=== PATIENT | female | born 1935 | race Caucasian/White ===

== ENCOUNTER 2020-01-05 17:05 | Inpatient (IN) | payer MEDICARE ==
[2020-01-05] VITALS (7 sets, daily range): BP systolic 150–207; BP diastolic 63–73
--- NOTE | 2020-01-05 18:00 | NUR ---
INFORMED CONSENT FOR 2 UNITS OF PRBC'S OBTAINED AT THIS TIME BY PT DAUGHTER (BRIDGER).PT AND DAUGHTER VERBALIZES UNDERSTANDING OF BLOOD TRANSFUSION AND REACTIONS.
--- NOTE | 2020-01-05 18:15 | NUR ---
PT ARRIVED TO MED/SURG ROOM 281 IN STABLE CONDITION VIA WHEELCHAIR ACCOMPANIED BY WRITTER;PT AMBULATED TO STANDING SCALE AND BEDSIDE;WT AND VS OBTAINED AT THIS TIME BP 207/73 HR 63, PT NOTED TO BE ANXIOUS;PT A&O X3,ORIENTED TO ROOM AND CALL LIGHT SYSTEM;PT DENIES ANY CURRENT PAIN OR DISCOMFORTS,PAIN SCALE AND REPORTING EDUCATED;RESPIRATIONS EVEN AND UNLABORED ON RA,CLEAR LUNG SOUNDS;ABDOMEN SOFT ON PALPATION AND ACTIVE IN ALL 4 QUADRANTS,LAST BM 01/04/20;WEAK PEDAL PULSES;SKIN INTACT;#20G STARTED TO RAC ON FIRST ATTEMPT BY THIS WRITTER,PT TOLERATED WELL;TELE MONITORING TO BE PLACED ON PT;PT DENIES ANY ADDITIONAL NEEDS AT THIS TIME AND IS ENCOURAGED TO CALL FOR ASSISTANCE IF NEEDED;FALL PRECAUTIONS IN PLACE WITH BED IN THE LOWEST POSITION AND CALL LIGHT IN REACH;WILL CONTINUE TO MONITOR
--- NOTE | 2020-01-05 18:25 | NUR ---
AT BEDSIDE DISCUSSING POC INCLUDING PLANS TO TAKE PT TO OR FOR COLONOSCOPY TOMORROW 01/06/20, PT VERBALIZES UNDERSTANDING.
[2020-01-05] MEDS ORDERED: COZAAR100 MG PO (19:07)
[2020-01-05] MEDS ORDERED: CARVEDILOL12.5 MG PO (19:08)
[2020-01-05] MEDS ORDERED: LIPITOR40 M1 PO (19:08)
[2020-01-05] MEDS ORDERED: MEMANTINE HYDROC5 MG (19:09)
[2020-01-05] MEDS ORDERED: ALENDRONATE SOD70 MG PO (19:10)
[2020-01-05] MEDS ORDERED: LORATADINE10 M3 (19:11)
[2020-01-05] MEDS ORDERED: DONEPEZIL HCL10 M1 (19:11)
--- NOTE | 2020-01-05 19:20 | NUR ---
MAINFRAME ARCHITECT, MOISÉS NOTIFIED OF SCHEDULED COLONOCOPY SCHEDULED FOR MORNING.
--- NOTE | 2020-01-05 20:07 | NUR ---
PT. IS GIVEN NULYTLELY AND EDUCATED ON NEED TO DRINK PRIOR TO MIDNIGHT AND VERBALIZES UNDERSTANDING. ALSO NOTIFIED OF NPO STATUS POST MIDNIGHT.
--- NOTE | 2020-01-05 21:06 | NUR ---
PT. REMAINS HYPERTENSIVE AND SCHEDULED HOME MED(COREG) GIVEN AT THIS TIME; WILL REASSESS TO SEE IF PT. NEEDS PRN HYDRALAZINE; WILL CONTINUE TO MONITOR. SPOKE WITH DAUGHTER(WHO IS THE POA) AND OBTAINED CONSENT BY TELEPHONE FOR EGD AND COLONOSCOPY FOR TOMORROW. VERIFIED VERBAL CONSENT WITH SECOND NURSE WELL. UPDATED POA WITH PT'S STATUS WELL AND THAT THIS INTERVENTION TEACHER IS ABOUT TO START BLOOD TRANSFUSION WELL PER ORDER.
--- NOTE | 2020-01-05 21:27 | NUR ---
BLOOD TRANSFUSION STARTED AND VERIFIED BY 2 NURSES PER PROTOCOL. THIS WHITE SUGAR PAN TANK OPERATOR AT BEDSIDE FOR INITITAL 15 MINUTES TO MONITOR FOR S/S OF REACTIONS.
--- NOTE | 2020-01-05 22:27 | NUR ---
REASSESSED B/P POST HYDRALIZINE AND NOW DOWN TO 150/68; WILL CONTINUE TO MONITOR. PT. ENCOURAGED TO CONTINUE WITH NULYTELY. PRBC'S INFUSING WELL. NO REACTIONS NOTED.
[2020-01-06] VITALS (13 sets, daily range): BP systolic 146–169; BP diastolic 51–78
--- NOTE | 2020-01-06 00:30 | NUR ---
FIRST UNIT OF PRBC'S FINISHED. PT. ONLY CONSUMED HALF OF GOLYTELY, PER PT. SHE IS UNABLE TO DRINK ANYMORE AT THIS TIME. STOOL APPEARS RED AND LIQUID AT THIS TIME. VSS. WILL CONITNUE TO MONITOR.
--- NOTE | 2020-01-06 00:45 | NUR ---
SECOND UNIT OF PRBC'S STARTED AND VERIFIED BY 2 NURSES PER PROTOCOL. THIS NURSE AT BEDSIDE FOR INITIAL 15 MINUTES TO MONITOR FOR S/S OF REACTIONS.
--- NOTE | 2020-01-06 03:30 | NUR ---
SECOND UNIT OF PRBC'S FINISHED. PT. TOLERATED WELL. NO REACTIONS NOTED. VSS. DENIES NEEDS/PAIN. PT. WAS ONLY ABLE TO TAKE IN HALF OF GOLYTLEY, BM STILL A LIQUID CONSISTENCY AND IS RED WITH NO CHANGE.
--- NOTE | 2020-01-06 04:00 | NUR ---
METROLOGY SPECIALIST IS INSTRUCTED TO WAIT 2 HRS POST TRANSFUSION FOR AM LABS AND TO OBTAIN THESE AT 0530.
[2020-01-06 05:53] LABS: HEMATOCRIT 28.5 % (37.0-47.0); MEAN CELL VOLUME 82.4 fL CALC (80.0-100.0); MEAN CORPUSCULAR HGB 25.4 pG CALC (26.0-32.0); MEAN CORPUSCULAR HGB CONC 30.9 g/dL CAL (32.0-36.0); RED BLOOD COUNT 3.46 mill/uL (4.20-5.60); RED CELL DISTRI WIDTH 18.6 % (11.5-15.5)
[2020-01-06 06:01] LABS: INTERNATIONAL NORMALIZED RATIO 1.1 RATIO (0.7-1.3); PROTHROMBIN TIME 11.1 SECONDS (9.0-12.5)
[2020-01-06 06:03] LABS: ALBUMIN 3.1 g/dL (3.2-5.0); ALKALINE PHOSPHATASE 66 u/l (38-126); ANION GAP 10 (6-22 (CALC)); BILIRUBIN, TOTAL 0.8 mg/dL (0.0-1.4); BUN 18 mg/dL (8-23); BUN/CREATININE RATIO 20 (12-20 (CALC)); CARBON DIOXIDE 20 mmol/l (22-30); CHLORIDE 112 mmol/l (95-108); CREATININE 0.9 mg/dL (0.5-1.0); GFR 60 ML/MIN (>=60 (CALC)); GFR FOR AFR.AMER. > 60 ML/MIN (>=60 (CALC)); SGOT/AST 18 u/l (9-36); SODIUM 138 mmol/l (137-146); TOTAL PROTEIN 5.9 g/dL (6.3-8.2)
[2020-01-06 06:18] LABS: HEMOGLOBIN 8.8 g/dl (12.0-16.0)
--- NOTE | 2020-01-06 07:00 | NUR ---
REPORT RECEIVED FROM VIPUL HO;PT APPEARS TO BE SLEEPING IN SUPINE POSITION;NO S/S OF DISTRESS NOTED;RESPIRATIONS EVEN AND UNLABORED ON RA;TELE MONITORING IN PLACE;NPO DIET REINFORCED;ALL SAFETY PRECAUTIONS REMAIN IN PLACE WITH BED IN THE LOWEST POSITION AND CALL LIGHT IN RECH;WILL CONTINUE TO MONITOR
--- NOTE | 2020-01-06 08:40 | NUR ---
PT RESTING IN SEMI FOWLERS POSITION,A&O X3;VS OBTAINED AND ASSESSMENT COMPLETED;PT REPORTS HEADACHE PAIN AT THIS TIME,EDUCATED PT ON NPO DIET STATUS AND PT VERBALIZES UNDERSTANDING; WARM PACK OFFERED BUT PT DECLINED;RESPIRATIONS EVEN AND UNLABORED ON RA,CLEAR LUNG SOUNDS;ABDOMEN SOFT ON PALPATION AND ACTIVE IN ALL 4 QUADRANTS;WEAK PEDAL PULSES;SKIN INTACT;TELE MONITORING IN PLACE;#22G TO LFA AND #20G TO RAC PATENT,BOTH SITES FLUSHED AND PATENT;PT TO BE TAKEN TO OR FOR COLONOSCOPY AND EGD,PT VERBALIZES UNDERSTANDING AND DENIES ANY ADDITIONAL QUESTIONS OR NEEDS;PHONED PT DAUGHTER SO THEY COULD TALK PRIOR TO PT LEAVING FOR OR;PT DENIES ANY ADDITIONAL NEEDS AT THIS TIME AND IS ENCOURAGED TO CALL FOR ASSISTANCE IF NEEDED;FALL PRECAUTIONS IN PLACE WITH BED IN THE LOWEST POSITION AND CALL LIGHT IN REACH;WILL CONTINUE TO MONITOR
--- NOTE | 2020-01-06 08:45 | NUR ---
AT BEDSIDE DISCUSSING POC.
--- NOTE | 2020-01-06 09:21 | NUR ---
PT TRANSPORTED TO OR IN STABLE CONDITION VIA STRETCHER ACCOMPANIED BY VIPUL DUNN
--- NOTE | 2020-01-06 11:50 | NUR ---
PT ARRIVED BACK TO MED/SURG ROOM 280 IN STABLE CONDITION VIA STRETCHER ACCOMPANIED BY VIPUL DUNN;PT ASSISTED TO HOSPITAL BED WITH MINIMAL ASSSISTANCE;PT DENIES ANY CURRENT PAIN OR DISCOMFORTS,PAIN SCALE AND REPORTING EDUCATED;RESPIRATIONS EVEN AND UNLABORED ON RA;CURRENT VS BP 160/59 HR 66 O2 98 RR 18 T 97.8, VS TO BE OBTAINED PER [facility] POST OP PROTOCAL;IV FLUIDS INFUSING WITH EASE TO RAC, IV SITE TO LFA REMAINS PATENT;TELE MONITORING PLACED BACK ON PT;PT VERBALIZES UNDERSTANDING ON PLANS TO TRANSFER TO [facility], AWATING BED ASSIGNMENT;PT DENIES ANY ADDITIONAL NEEDS AT THIS TIME AND IS ENCOURAGED TO CALL FOR ASSISTANCE IF NEEDED;ALL SAFETY PRECAUTIONS REMAIN IN PLACE WITH BED IN THE LOWEST POSITION AND CALL LIGHT IN REACH;WILL CONTINUE TO MONITOR
--- NOTE | 2020-01-06 12:30 | NUR ---
UPDATED DAUGHTER (POA) BRIDGER ON PLAN OF CARE.ALL QUESTIONS ANSWERED AT THIS TIME.DAUGHTER TRANSFERRED INTO PATIENTS ROOM.
--- NOTE | 2020-01-06 13:23 | NUR ---
PT REPORTING ABDOMINAL PAIN AT THIS TIME,[place] NOTIFIED;AWAITING NEW ORDERS;WILL CONTINUE TO MONITOR
--- NOTE | 2020-01-06 13:47 | NUR ---
PT MEDICATED WITH PRN ULTRAM 50MG PO FOR ABDOMINAL PAIN RATING 10/10 ON THE PAIN SCALE;PT NOTIFIED OF [facility] [employer] MECHANIC TIME IF 1415 FOR TRANSPORT TO [facility] AND VERBALIZES UNDERSTANDING;PT DENIES ANY ADDITIONAL NEEDS AT THIS TIME;WILL CONTINUE TO MONITOR
--- NOTE | 2020-01-06 14:00 | NUR ---
PT TRANSPORTED TO [facility] AT THIS TIME VIA STRETCHER ACCOMPANIED BY [facility] IN STABLE CONDITION
--- NOTE | 2020-01-06 14:09 | NUR ---
REPORT CALLED TO VIPUL BERNARD AT [facility]
--- NOTE | 2020-01-06 14:13 | NUR ---
BRIDGER (DAUGHTER) NOTIFIED THAT PATIENT IS IN ROUTE TO [facility]
== END 2020-01-06 14:00 | DRG 375 ==
LOC: ED 17:05 → EDSTATUS 17:09 → MS2 01-06 14:00
PROVIDERS: Surgery; ADMIT Internal Medicine; ATTEND Internal Medicine
PROC: 30233N1 Transfusion of Nonautologous Red Blood Cells into Peripheral Vein, Percutaneous Approach (ICD-10-PCS; 2020-01-05)
PROC: 0DBH8ZX Excision of Cecum, Via Natural or Artificial Opening Endoscopic, Diagnostic (ICD-10-PCS; principal; 2020-01-06)
PROC: 0DBL8ZX Excision of Transverse Colon, Via Natural or Artificial Opening Endoscopic, Diagnostic (ICD-10-PCS; 2020-01-06)
PROC: 0DBF8ZX Excision of Right Large Intestine, Via Natural or Artificial Opening Endoscopic, Diagnostic (ICD-10-PCS; 2020-01-06)
PROC: 3E0H8KZ Introduction of Other Diagnostic Substance into Lower GI, Via Natural or Artificial Opening Endoscopic (ICD-10-PCS; 2020-01-06)
PROC: 0DJ08ZZ Inspection of Upper Intestinal Tract, Via Natural or Artificial Opening Endoscopic (ICD-10-PCS; 2020-01-06)
PROC: 30233N1 Transfusion of Nonautologous Red Blood Cells into Peripheral Vein, Percutaneous Approach (ICD-10-PCS; 2020-01-06)
DX: C18.2 Malignant neoplasm of ascending colon (principal); K50.10 Crohn's disease of large intestine without complications; C18.4 Malignant neoplasm of transverse colon; D50.0 Iron deficiency anemia secondary to blood loss (chronic); I10 Essential (primary) hypertension; R19.5 Other fecal abnormalities; K57.30 Diverticulosis of large intestine without perforation or abscess without bleeding; F03.90 Unspecified dementia, unspecified severity, without behavioral disturbance, psychotic disturbance, mood disturbance, and anxiety; E78.5 Hyperlipidemia, unspecified; K64.4 Residual hemorrhoidal skin tags; Z11.59 Encounter for screening for other viral diseases; D64.9 Anemia, unspecified
CPT/HCPCS: J1756; P9016